=== PATIENT | female | born 1990 | race Two or more races ===

== ENCOUNTER 2019-08-31 01:00 | Observation (INO) | payer MEDICAID ==
[~2019-08-31] VITALS: Ht 165.1 cm; Wt 93.0 kg
[~2019-08-31 01:00] MED LIST: PRENCAP61 PO
[2019-08-31 01:13] VITALS: BP 109/67
[2019-08-31] MEDS ORDERED: HYDR250I6 IM (01:58)
== END 2019-08-31 03:27 | disposition home or self-care (01) | DRG 566 ==
LOC: ER 01:01 → LDRP 01:13
PROVIDERS: ADMIT Obstetrics & Gynecology; ATTEND Obstetrics & Gynecology
DX: O44.42 Low lying placenta NOS or without hemorrhage, second trimester (principal); Z3A.20 20 weeks gestation of pregnancy; Z3A.21 21 weeks gestation of pregnancy
CPT/HCPCS: 59025; 76815; 81002; 99284; G0378

== ENCOUNTER 2019-12-03 09:08 | Observation (INO) | payer MEDICAID ==
[~2019-12-03] VITALS: Ht 165.1 cm; Wt 92.5 kg
[~2019-12-03 09:08] MED LIST changes: +HYDR250I6 IM
[2019-12-03] MEDS ORDERED: LACTATED RINGER'S 1,000 ML IV ONE (10:03)
[2019-12-03] MEDS ORDERED: TERBUTALINE SULFATE 1 MG/ML 1ML VIAL SC ONE (10:09)
[2019-12-03] MEDS: TERBUTALINE SULFATE 1 MG/ML 1ML VIAL SC SCH ×3 (10:12→11:00)
== END 2019-12-03 12:40 | disposition home or self-care (01) | DRG 563 ==
LOC: LDRP 09:08
PROVIDERS: ADMIT Specialist; ATTEND Specialist
DX: O60.03 Preterm labor without delivery, third trimester (principal); Z3A.32 32 weeks gestation of pregnancy
CPT/HCPCS: 59025; 81002; 94760; 96372; G0378; J3105; 96365; 96366

== ENCOUNTER 2019-12-10 09:10 | Observation (INO) | payer MEDICAID ==
[2019-12-10] MEDS ORDERED: NIF10C GT (09:36)
[2019-12-10] MEDS ORDERED: BETAMETHASONE ACET (6MG/ML) 5ML VIAL IM ONE (09:45)
== END 2019-12-10 10:30 | disposition home or self-care (01) | DRG 563 ==
LOC: LDRP 09:10
PROVIDERS: ADMIT Specialist; ATTEND Specialist
DX: O60.03 Preterm labor without delivery, third trimester (principal); Z3A.33 33 weeks gestation of pregnancy
CPT/HCPCS: 59025; 81002; 96372; G0378; J0702

== ENCOUNTER 2019-12-11 09:25 | Observation (INO) | payer MEDICAID ==
[~2019-12-11] VITALS: Ht 162.6 cm; Wt 94.8 kg
[~2019-12-11 09:25] MED LIST changes: +NIF10C GT
[2019-12-11] MEDS ORDERED: BETAMETHASONE ACET (6MG/ML) 5ML VIAL IM SCH (10:45)
== END 2019-12-11 11:30 | disposition home or self-care (01) | DRG 563 ==
LOC: LDRP 09:25
PROVIDERS: ADMIT Obstetrics & Gynecology; ATTEND Obstetrics & Gynecology
DX: O60.03 Preterm labor without delivery, third trimester (principal); Z3A.33 33 weeks gestation of pregnancy
CPT/HCPCS: 59025; 81002; 96372; G0378; J0702

== ENCOUNTER 2019-12-17 09:00 | Observation (INO) | payer MEDICAID | END 2019-12-17 09:55 | disposition home or self-care (01) | DRG 563 | LOC: LDRP 09:00 | PROVIDERS: ADMIT Obstetrics & Gynecology; ATTEND Obstetrics & Gynecology | DX: O60.03 Preterm labor without delivery, third trimester (principal); Z3A.34 34 weeks gestation of pregnancy | CPT/HCPCS: 59025; 81002; G0378 ==

== ENCOUNTER 2019-12-24 08:53 | Observation (INO) | payer MEDICAID | END 2019-12-24 09:45 | disposition home or self-care (01) | DRG 563 | LOC: LDRP 08:53 | PROVIDERS: ADMIT Obstetrics & Gynecology; ATTEND Obstetrics & Gynecology | DX: O60.03 Preterm labor without delivery, third trimester (principal); Z3A.35 35 weeks gestation of pregnancy | CPT/HCPCS: 59025; 81002; G0378 ==

== ENCOUNTER 2020-01-14 10:05 | Inpatient (IN) | payer MEDICAID ==
[~2020-01-14] VITALS: Ht 162.6 cm; Wt 111.1 kg
[2020-01-14] MEDS ORDERED: LACTATED RINGER'S 1,000 ML IV SCH (11:20)
[2020-01-14] MEDS ORDERED: LACT. RINGERS/OXYTOCIN 20UNITS 1,000 ML IV SCH (11:20)
[2020-01-14] MEDS ORDERED: WITCH HAZEL-GLYCERIN PAD TOP PRN (11:30)
[2020-01-14] MEDS ORDERED: DERMOPLAST 60ML BOTTLE TOP PRN (11:30)
[2020-01-14] MEDS ORDERED: LIDOCAINE 2%HCL (LOCAL ANESTH.) INJ 20ML MDV ID ONE (11:30)
[2020-01-14] MEDS ORDERED: PHISODERM TOP SOLN 240ML BTL TOP PRN (11:30)
[2020-01-14] MEDS ORDERED: miSOPROStol 50 MCG per PRE-CUT 1/2 TAB PO PRN (12:00)
[2020-01-14 12:02] LABS: Basophils % (auto) 0.1 % (0.0-2.0); Hematocrit 36.6 % (36.0-46.0); Mean Corpuscular Volume 77.6 fL (80.0-100.0); Red Blood Cells 4.71 10^6/uL (4.0-5.20)
[2020-01-14 12:04] LABS: Basophils # (auto) 0 10 ^3/uL (0-0.2); Eosinophils # (auto) 0 10 ^3/uL (0-0.8); Eosinophils % (auto) 0.3 % (0.0-7.0); Hemoglobin 11.9 g/dL (12.2-16.2); Lymphocytes % (auto) 17.1 % (10.0-50.0); Mean Corpuscular Hemoglobin 25.3 pg (28.0-32.0); Mean Corpuscular Hgb Conc. 32.6 g/dL (32.0-36.0); Monocytes # (auto) 0.9 10 ^3/uL (0-1.3); Monocytes % (auto) 7.8 % (0.0-12.0); Neutrophils # (auto) 8.9 10 ^3/uL (1.6-8.6); Neutrophils % (auto) 74.7 % (37.0-80.0); Platelet Count (auto) 227 10^3/uL (140-450); White Blood Cell 11.9 10^3/uL (4.4-10.8)
[2020-01-14 12:16] LABS: Albumin 2.6 g/dL (3.4-5.0); Calcium 9.3 mg/dL (8.5-10.1); Potassium 3.9 mmol/L (3.5-5.1); Uric Acid 6.7 mg/dL (2.6-6.0)
[2020-01-14 12:17] LABS: INR 0.96 (0.9-1.15); Partial Thromboplastin Time 26.2 sec (23.64-32.05); Urine Bacteria FEW /hpf (None Seen); Urine Blood 3+ /uL (Negative); Urine Specific Gravity 1.021 (1.001-1.035); Urine WBC 12 /hpf (0 - 5)
[2020-01-14 12:20] LABS: BUN/Creatinine Ratio 23.9; Bilirubin, Total 0.3 mg/dL (0.2-1.0); Total Protein 7.7 g/dL (6.4-8.2)
[2020-01-14 13:04] LABS: Amphetamine Screen, Urine NEGATIVE (NEGATIVE); Barbiturate Scree,Urine NEGATIVE (NEGATIVE); Benzodiazephine Screen, Urine NEGATIVE (NEGATIVE); Cannabinoid Screen, Urine NEGATIVE (NEGATIVE); Cocaine Screen, Urine NEGATIVE (NEGATIVE); Opiate Scree,Urine NEGATIVE (NEGATIVE); Phencyclidine Screen, Urine NEGATIVE (NEGATIVE)
[2020-01-14] MEDS ORDERED: ceFAZolin 1GM/50ML 50 ML IV SCH (14:00)
[2020-01-14] MEDS ORDERED: fentaNYL CITRATE 100 MCG/2 ML VL IV ONE (14:45)
[2020-01-14] MEDS ORDERED: ePHEDrine SULFATE 50 MG/ML AMP IV ONE (14:45)
[2020-01-14] MEDS ORDERED: NALOXONE HCL 0.4 MG/ML VIAL IV ONE (14:45)
[2020-01-14] MEDS ORDERED: LIDOCAINE HCL 2 %PF INJ 10ML AMP IJ ONE (14:45)
[2020-01-14] MEDS ORDERED: fentaNYL 200mCg/100ml W ROPIVA 100 ML EPI SCH ×2 (14:45→16:30)
--- NOTE | 2020-01-14 22:23 | NUR ---
Ambulation: Patient OOB with standby assistance by RN. Patient ambulated to bathroom with steady gait. Patient able to void without difficulty. [facility] teaching provided with returned demonstration by patient. Clean gown provided and bed linen changed. Patient ambulated back to bed with steady gait and no distress noted.
[2020-01-14 23:00] VITALS: BP 98/50
[2020-01-15 02:58] VITALS: BP 121/58
[2020-01-15] MEDS: IBUPROFEN 600 MG TAB PO PRN ×2 (03:02→14:33)
--- NOTE | 2020-01-15 03:23 | NUR ---
Report received from Vania Owens RN, assumed care of patient.
[2020-01-15 05:06] LABS: RPR Non Reactive (Non Reactive)
[2020-01-15 06:57] VITALS: BP 110/60
[2020-01-15 11:00] VITALS: BP 114/56
[2020-01-15] MEDS ORDERED: INFLUENZA QUAD 2019-2020 0.5ml SYRG IM ONE (14:00)
[2020-01-15] MEDS ORDERED: TETANUS-DIPTH-ACEL PERTUSSIS 0.5ML SYR Tdap IM ONE (14:00)
[2020-01-15 14:38] VITALS: BP 115/56
[2020-01-15 19:00] VITALS: BP 113/70
[2020-01-15 23:00] VITALS: BP 101/56
[2020-01-16 03:00] VITALS: BP 122/61
[2020-01-16] MEDS: IBUPROFEN 600 MG TAB PO PRN (04:31)
[2020-01-16 07:20] VITALS: BP 116/62
--- NOTE | 2020-01-16 10:15 | NUR ---
Discharge: Discharge instructions given as ordered. Pt encouraged to follow up with [facility] as instructed. All questions and concerns addressed. Patient verbalized understanding. Medication reconciliation completed and copy given to patient. All required/requested vaccines given and copies of vaccinations given to patient. Patient encouraged to prepare to depart unit.
--- NOTE | 2020-01-16 10:30 | NUR ---
Discharge: Patient taken to vehicle via wheelchair with all personal belongings, accompanied by staff and family member. No distress noted at time of departure, no adverse changes in status since initial assessment.
== END 2020-01-16 10:30 | disposition home or self-care (01) | DRG 560 ==
LOC: LDRP 10:05 → OBSVTOIN 11:15 → LDRP 11:28
PROVIDERS: ADMIT Specialist; ATTEND Specialist
PROC: 10E0XZZ Delivery of Products of Conception, External Approach (ICD-10-PCS; principal; 2020-01-14)
PROC: 3E0S3BZ Introduction of Anesthetic Agent into Epidural Space, Percutaneous Approach (ICD-10-PCS; 2020-01-14)
DX: O69.81X0 Labor and delivery complicated by cord around neck, without compression, not applicable or unspecified (principal); Z37.0 Single live birth; Z3A.38 38 weeks gestation of pregnancy
CPT/HCPCS: 36415; 59025; 59409; 62282; 80053; 80307; 81001; 81002; 84112; 84550; 85025; 85610; 85730; 86592; 86850; 86900; 86901; 90715; 96365; 96366; 96372; G0378; J0690; J2590